=== PATIENT | male | born 1950 | race Caucasian/White ===

== ENCOUNTER 2019-10-10 06:16 | Inpatient (IN) | payer MEDICARE ==
[~2019-10-10] VITALS: Ht 170.2 cm; Wt 63.6 kg
[2019-10-10] MEDS ORDERED: LOPRESSOR25 MG PO (06:20)
[2019-10-10] MEDS ORDERED: PROZAC20 MG PO (06:20)
[2019-10-10] MEDS ORDERED: PROPRANOLOL HCL20 MG PO (06:20)
[2019-10-10 07:24] LABS: BASOPHILS 0.2 % (0-2); HEMATOCRIT 39.7 % (42.0-54.0); HEMOGLOBIN 13.3 g/dL (13.5-17.5); IMMATURE GRANULOCYTES 0.3 % (0-5); LYMPHOCYTES 12.5 % (15-50); MCHC 33.5 g/dL (31.0-37.0); MCV 95.4 fL (80.0-100.0); MEAN PLATELET VOLUME 9.7 fL (7.4-10.4); MONOCYTES 10.3 % (2-11); NEUTROPHILS 72.7 % (40-80); PLATELET COUNT 167 10x3/uL (130-400); RBC 4.16 10x6/uL (4.20-6.10); RDW 14.6 % (11.5-14.5); WBC 6.3 10x3/uL (4.8-10.8)
--- NOTE | 2019-10-10 07:25 | NUR ---
RT HERE TO GET ABG'S
[2019-10-10 07:39] LABS: APTT 36.2 SECONDS (22.8-39.4)
[2019-10-10 07:40] LABS: INR 0.97 (0.85-1.17); PROTIME 12.8 SECONDS (11.6-15.0)
[2019-10-10 07:45] LABS: D-DIMER-QUANTITATIVE 2.17 ug/mLFEU (0.20-0.54)
[2019-10-10 07:49] LABS: ALBUMIN 2.9 g/dL (3.4-5.0); ALKALINE PHOSPHATASE 65 U/L (30-120); ALT (SGPT) 19 U/L (10-68); BILIRUBIN - TOTAL 0.45 mg/dL (0.2-1.3); CALC OSMOLALITY 269 mosm/kg (275-300); CALCIUM 8.2 mg/dL (8.5-10.1); CHLORIDE - SERUM 104 mmol/L (98-107); CREATINE KINASE 117 UL (21-232); CREATININE - SERUM 0.9 mg/dL (0.6-1.3); GLUCOSE 88 mg/dL (74-106); POTASSIUM - SERUM 3.7 mmol/L (3.5-5.1); PRO BNP 656 pg/mL (0-125); PROTEIN - SERUM 7.9 g/dL (6.4-8.2); SODIUM 136 mmol/L (136-145); UREA NITROGEN 10 mg/dL (7-18); eGFR NON AFRICAN AMERICAN 88 mL/min (90-120)
[2019-10-10 07:50] LABS: TROPONIN-I < 0.017 ng/mL (0.000-0.060)
[2019-10-10 12:12] VITALS: BP 166/67
[2019-10-10 12:29] VITALS: BP 166/67; Ht 170.2 cm; Wt 63.6 kg
--- NOTE | 2019-10-10 12:41 | NUR ---
ASSESSMENT PER FLOW . PATIENT IS WITHOUT DISTRESS.CALL LIGHT IN REACH
--- NOTE | 2019-10-10 12:42 | NUR ---
RECEIVED PT TO ROOM. PT IS AWAKE, ALERT AND ORIENTED, STATED HE HAS HAD TROUBLE CATCHING HIS BREATH FOR THE PAST 2 DAYS AND DECIDED TO COME TO ER. PT HAS IV IN RT FA SL, NO S/SX OF DISTRESS, ASSUME PT CARE
[2019-10-10 15:37] VITALS: BP 148/61
[2019-10-10 20:00] VITALS: BP 156/60
--- NOTE | 2019-10-10 20:00 | NUR ---
PT SITTING UP IN BED WITHOUT DISTRESS, AOX4. IV RIGHT FA SL. DENIES PAIN OR NEEDS. CL IN REACH, WILL CTM
--- NOTE | 2019-10-11 03:30 | NUR ---
PT SITTING IN BED WITHOUT DISTRESS, DENIES NEEDS. CL IN REACH, WILL CTM
[2019-10-11 04:00] VITALS: BP 145/92
[2019-10-11 07:14] LABS: BASOPHILS 0 % (0-2); EOSINOPHILS 0 % (0-7); HEMATOCRIT 43.7 % (42.0-54.0); HEMOGLOBIN 14.4 g/dL (13.5-17.5); IMMATURE GRANULOCYTES 0.4 % (0-5); LYMPHOCYTES 4.6 % (15-50); MCH 31.4 pg (26.0-34.0); MCV 95.4 fL (80.0-100.0); MEAN PLATELET VOLUME 9.6 fL (7.4-10.4); MONOCYTES 1.8 % (2-11); NEUTROPHILS 93.2 % (40-80); RBC 4.58 10x6/uL (4.20-6.10); RDW 14.4 % (11.5-14.5)
[2019-10-11 07:16] LABS: PLATELET COUNT 205 10x3/uL (130-400); WBC 10.5 10x3/uL (4.8-10.8)
[2019-10-11 08:58] LABS: CALCIUM 8.7 mg/dL (8.5-10.1); CARBON DIOXIDE 24.7 mmol/L (21.0-32.0); CHLORIDE - SERUM 103 mmol/L (98-107); CREATININE - SERUM 0.9 mg/dL (0.6-1.3); MAGNESIUM - SERUM 2.1 mg/dL (1.8-2.4); PHOSPHOROUS 3.2 mg/dL (2.5-4.9); POTASSIUM - SERUM 3.9 mmol/L (3.5-5.1); SODIUM 137 mmol/L (136-145); eGFR NON AFRICAN AMERICAN 88 mL/min (90-120)
[2019-10-11 09:04] LABS: CALC OSMOLALITY 276 mosm/kg (275-300); GLUCOSE 139 mg/dL (74-106); UREA NITROGEN 15 mg/dL (7-18)
[2019-10-11 09:30] VITALS: BP 139/57
--- NOTE | 2019-10-11 12:57 | MORECARE ---
CASE MANAGEMENT DISCHARGE SUMMARY PATIENT: OG DIEZ UNIT: [id number] ADM DATE: 10/10/19 AGE: 69 : 48 SEX: M ROOM/BED: D.2222 AUTHOR: SRINI MCCARTY PHYSICIAN: REFERRING PHYSICIAN: ROSA DORADO MD DATE OF SERVICE: 10/11/19 Discharge Plan Patient Name: OG DIEZ [facility] : 1950 Planned Disposition: Home or Self Care Anticipated Discharge Date: Discharge Date: Expected LOS: Initial Reviewer: [email or web address] Initial Review Date: 10/10/2019 Generated: 10/11/19 1:56 pm DCPIA - Discharge Planning Initial Assessment Updated by [email or web address]: Meme Perez on 10/11/19 12:56 pm * Is the patient Alert and Oriented? Yes * How many steps to enter\exit or inside your home? 0/0 * Preadmission Environment Homeless * ADLs Independent * Equipment Cane * Community resources currently utilized None * Additional services required to return to the preadmission environment? No * Can the patient safely return to the preadmission environment? Yes * Has this patient been hospitalized within the prior 30 days at any hospital? No Patient Name: OG DIEZ Page [id number] at 1257 All edits/amendments must be made on the electronic document DICTATION DATE: 10/11/19 1256 RECEIVER SETTER: LISBETH 10/11/19 1256 RPT#: [id number] DC DATE: STATUS: ADM IN [facility] [address] [place] [address] END OF REPORT
--- NOTE | 2019-10-11 13:04 | MORECARE ---
CASE MANAGEMENT DISCHARGE SUMMARY PATIENT: OG DIEZ UNIT: [id number] ADM DATE: 10/10/19 AGE: 69 : 48 SEX: M ROOM/BED: D.2222 AUTHOR: LULDOC PHYSICIAN: REFERRING PHYSICIAN: ROSA DORADO MD DATE OF SERVICE: 10/11/19 Discharge Plan Patient Name: OG DIEZ Facility: [facility]:[place] : 1950 Planned Disposition: Home or Self Care Anticipated Discharge Date: Discharge Date: Expected LOS: Initial Reviewer: [email or web address] Initial Review Date: 10/10/2019 Generated: 10/11/19 2:03 pm Comments DCP- Discharge Planning Updated by [email or web address]: Meme Perez on 10/11/19 12:[address] Patient Name: OG DIEZ Admission Status: ER Accout number: [id number] Admission Date: 10-10-2019 : 1950 Admission Diagnosis: Attending: ROSA DORADO Current LOS: 1 Anticipated DC Date: Planned Disposition: Home or Self Care Primary Insurance: [facility] MEDICARE HMO or PPO Discharge Planning Comments: CM met with patient to complete initial dc planning assessment. CM educated patient on the CM role and verbal consent given by patient to complete assessment. CM verified patient's address, phone number, and emergency contact phone numbers. Patient is homeless and stays at the [facility] assisted on [facility] when cots are available. At discharge patient plans to return to [facility] and feels this is a safe discharge. Patient states he has been short of breath, but is not currently on oxygen. A walk test was performed to assess for home or portable oxygen needs. Oxygen saturation was 94% on room air and was 94% with ambulation. CM discussed availability of home health, rehab services, and medical equipment. The patient has 2 canes, and a bag of his belongings. Patient denies any known discharge needs at this time. CM will continue to follow and will assist as needed with dc plans/needs. DC IMM delivered, explained, signed by the patient, and placed in chart. Signed form also left with the patient. Market Asset Protection Manager: Mmee Perez DCPIA - Discharge Planning Initial Assessment Updated by [email or web address]: Meme Perez on 10/11/19 12:56 pm * Is the patient Alert and Oriented? Yes * How many steps to enter\exit or inside your home? 0/0 * Preadmission Environment Homeless * ADLs Independent * Equipment Cane * Community resources currently utilized None * Additional services required to return to the preadmission environment? No * Can the patient safely return to the preadmission environment? Yes * Has this patient been hospitalized within the prior 30 days at any hospital? No Coverage Notice Reviewer: [email or web address] - Meme Perez Notice Issued Date-Time: 10/11/2019 12:20 Notice Type: IM Discharge Notice Notice Delivered To: Patient Relationship to Patient: Agriculture Instructor Name: Delivery Method: - Kelle Days: Prior Verbal Notification: Recipient Understood Notice: Recipient Signature: Med Rec Note Co-signed by Attending: Coverage Notice Comment: Last DP export: 10/11/19 11:57 a Patient Name: OG DIEZ Page [id number] at 1304 All edits/amendments must be made on the electronic document DICTATION DATE: 10/11/19 1303 SHIFT SUPERVISOR RN: LISBETH 10/11/19 1303 RPT#: [id number] DC DATE: STATUS: ADM IN [facility] [address] [place] [address] END OF REPORT
[2019-10-11 13:23] VITALS: BP 154/53
--- NOTE | 2019-10-11 14:34 | NUR ---
DISCHARGE INSTRUCTIONS,STATES UNDERSTANDING. IV DCD WITH CATH TIP INTACT.LEFT UNIT VIA WHEELCHAIR FOR TRANSPORT HOME
== END 2019-10-11 15:04 | disposition home or self-care (01) | DRG 192 ==
LOC: D.ER 06:16 → D.MS 10:32 → OBSVTIME 10:32 → D.ER 11:48 → D.MS 15:57
PROVIDERS: Emergency Medicine; Family Medicine; ADMIT Legal Medicine; ATTEND Legal Medicine
DX: J44.1 Chronic obstructive pulmonary disease with (acute) exacerbation (principal); I10 Essential (primary) hypertension; K21.9 Gastro-esophageal reflux disease without esophagitis